=== PATIENT | male | born 1985 | race Two or more races ===

== ENCOUNTER → 2022-12-02 08:10 | Outpatient (BNVA) | payer SELFPAY | PROVIDERS: Visit Provider Physician Assistant | DX: Z02.79 Encounter for issue of other medical certificate (principal) ==

== ENCOUNTER 2023-05-17 11:21 | Outpatient (REF) | payer OTHER, SELFPAY ==
[2023-05-17 12:36] LABS: Anion Gap 11 (12-20); Blood Urea Nitrogen 17 mg/dL (9-16); Calcium 9.4 mg/dL (8.4-10.2); Carbon Dioxide 25 mmol/L (22-29); Chloride 107 mmol/L (96-108); Cholesterol 245 mg/dL (<200); Estimated Glomerular Filt Rate > 60; Glucose Random 115 mg/dL (60-115); HDL Cholesterol 45 mg/dL (>40); LDL Cholesterol Calculated 157 mg/dL (<100); Potassium 4.1 mmol/L (3.3-5.1); Sodium 139 mmol/L (135-145); Triglycerides 215 mg/dL (<150)
[2023-05-17 12:51] LABS: Vitamin D 25-OH Total 21.6 ng/mL (>30)
[2023-05-17 12:57] LABS: Vitamin B12 1295 pg/mL (200-900)
== END 2023-05-17 11:22 | disposition home or self-care (01) ==
LOC: HO.LAB 11:21
PROVIDERS: PCP Nurse Practitioner Primary Care; Visit Provider Nurse Practitioner Primary Care
DX: E78.1 Pure hyperglyceridemia (principal); E21.3 Hyperparathyroidism, unspecified; R20.2 Paresthesia of skin; R20.0 Anesthesia of skin
CPT/HCPCS: 36415; 80048; 80061; 82306; 82607

== ENCOUNTER 2024-05-15 17:06 | Outpatient (REF) | payer OTHER, SELFPAY ==
[2024-05-16 02:45] LABS: CT PCR NOT DETECTED (Not Detect.); NG PCR NOT DETECTED (Not Detect.)
== END 2024-05-15 17:07 | disposition home or self-care (01) ==
LOC: HO.HHCLNP 17:06
PROVIDERS: Visit Provider Nurse Practitioner Family
DX: R31.9 Hematuria, unspecified (principal)
CPT/HCPCS: 87086; 87491; 87591

== ENCOUNTER 2024-07-07 16:12 | Outpatient (REF) | payer OTHER, SELFPAY ==
--- OUTSIDE RECORDS SUMMARY | 2024-07-07 16:14 | XMS_ITS ---
Author Name [facility] Organization Unknown Care Team Organization Name Specialty Phone Email Start Date End [facility]
--- OUTSIDE RECORDS SUMMARY | 2024-07-07 16:14 | XMS_ITS | Data Portability ---
Author Organization [place] - [facility] [address] Address [address] [place] [address] Assessment No assessment recorded. Plan of Treatment Reminders Order Date Submit Date Provider Last Modified By Organization Details Last Modified Time Details Appointments None record ed. Lab None record ed. Referral None record ed. Procedures None record ed. Surgeries None record ed. Imaging None record ed. Medication Orders None record ed. Patient TargetsNo targets recorded. Patient InstructionsNo instructions recorded. Reason for Referral None Reported. Procedures Surgical History Date Name Laterality Status Provider Name and Address Organization Details Recorded Time 3 OC-BAT Screening Template DOT completed FITZ HANSEN [place] - [facility] 03/26/2022 17:29:46 3 OC-UDS Send Out Template DOT completed FITZ HANSEN PA - [facility] 03/26/2022 17:31:18 2 OC-BAT Screening Template NON DOT completed TL OKEEFE PA - [facility] 02/04/2022 15:24:32 2 OC-UDS Send Out Template NON DOT completed TL DESMITH PA - [facility] 02/04/2022 15:36:39 Imaging Results None recorded. Procedure Notes None recorded. Medical Equipment None Reported. Vitals None Recorded Social History None recorded. Functional Status None recorded. Mental Status None recorded. Family History Nothing Reported. Medical History No medical history recorded. Past Encounters Encounter ID Performer Location Encounter Start Date Encounter Closed Date Diagnosis/Indication Diagnosis SNOMED-CT Code Diagnosis ICD10 Code Diagnosis Note [id number] [facility] [facility] [address] [place] [address] 05/24/2017 13:05:13 05/24/2017 14:02:53 [id number] [address] [place] [phone] 7 12/03/2020 08:16:56 12/03/2020 09:05:19 [id number] [address] [facility] [address] [place] [address] 11/19/2015 08:38:29 11/19/2015 11:09:51 [id number] [address] [place] [address] 11/25/2020 11:56:49 11/25/2020 13:08:37 [id number] [facility] [address] [address] [place] [address] 02/08/2020 16:46:58 02/08/2020 18:03:17 [id number] [facility] [address] [address] [place] [address] 7 12/04/2018 09:09:43 12/04/2018 09:56:36 [id number] Kaylynn Marcus [place] [address] [facility] [address] [place] [phone] 02/04/2022 14:45:42 02/04/2022 15:36:54 History and physical examination, pre-employment [id number] Z02.1 [id number] Kaylynn Marcus DO [address] [address] [place] [address] 03/26/2022 15:07:53 03/26/2022 17:36:00 History and physical examination, pre-employment [id number] Z02.1 Health Concerns Section Related Observation LastModified by Organization Detai ls LastModified Time None Recorded Concern Status LastModified by Organization Details LastModified Time None Recorded Advance Directives Directive None Recorded Payers Insurance Date Sequence Insurance Name Policy Number Policy West Covered Member ID West Member ID Guarantor Name 03/26/2022 -[employer] - [employer] [facility] JOSEPHINE MONIQUE [facility] 02/04/2022 OC[employer] - [employer] [facility] JOSEPHINE MONIQUE [facility]
[2024-07-07 16:31] LABS: Appearance Urine Clear; Color Urine Yellow; Glucose Urine UA >=1000 mg/dL (Negative); Leukocyte Esterase Urine Negative (Negative); Nitrite Urine Negative (Negative); UMIC TRIGGER UACC YES; Urine Blood Negative (Negative); Urine Ketones Negative (Negative); Urine Protein Negative (Neg-Trace)
[2024-07-07 16:36] LABS: Bacteria Urine None Seen (None Seen); Hyaline Casts Urine 0-2 /LPF (0-2); RBC Urine 0-2 /HPF (0-2); Squamous Epithelial Cell Urine 0-2 /HPF (0-2); WBC Urine 0-5 /HPF (0-5)
== END 2024-07-07 16:13 | disposition home or self-care (01) ==
LOC: HO.HHCLNP 16:12
PROVIDERS: Visit Provider Nurse Practitioner Primary Care
DX: R31.9 Hematuria, unspecified (principal)
CPT/HCPCS: 81001

== ENCOUNTER 2024-07-10 09:04 | Outpatient (REF) | payer OTHER, SELFPAY ==
--- OUTSIDE RECORDS SUMMARY | 2024-07-10 09:12 | XMS_ITS | Encounter Summary ---
Author Organization [employer] Address [address] [facility] 7t [place] [address] Care Team Providers Care Cart Driver Name Role Phone Gila Chun Primary Care Provider [phone] Encounter Details Date Type Department Care Team (Late st Contact Info) Description 07/07/2024 Orders Only [facility] MED[facility] [address] [place] [address] Gila Chun ANP [address] [place] [address] Glucosuria (Primary Dx); Screening for diabetes mellitus; Hypertriglyceridemia Social History Tobacco Use Types Packs/Day Years Used Date Smoking Tobacco: Never Passive Smoke Exposure: Never Smokeless Tobacco: Never Alcohol Use Standard Drinks/Week Comments Never 0 (1 standard drink = 0.6 oz pur e alcohol) Depression Answer Date Recorded Patient Health Questionnaire-9 Score 2 05/10/2023 Patient Health Questionnaire-9 Score 2 05/10/2023 Last PHQ-9: Questionnaire Data Not on file 0 05/10/2023 Housing Stability Answer Date Recorded What is your housing situation today? I have verna aguero 07/07/[address] you li ve. Do you have problems with any of the following? None of the above 07/07/2024 Food Insecurity Answer Date Recorded Within the past 12 months, y ou worried that your food would run out before you got money to buy more: Never True 07/07/2024 Within the past 12 months,th e food you bought just didn't last and you didn't have enough money to get more: Never True 10/2024 Transportation Answer Date Recorded In the past 12 months, has l ack of transportation kept you from medical appts, meetings, work or from getting things needed for daily living? No 07/07/2024 Utilities Answer Date Recorded In the past 12 months, has t he electric, gas, oil or water company threatened to shut off services in your home? No 07/07/2024 Depression Answer Date Recorded Patient Health Questionnaire-2 Score 0 07/07/2024 Internet Access Answer Date Recorded Internet Access Q1 Yes 11/05/2023 Internet Access Q2 Not on file 11/05/2023 Sex and Gender Information Value Date Recorded Sex Assigned at Male 12/29/2021 10:16 AM EDT Legal Sex Male 10:16 AM EDT Gender Identity Male 12/29/2021 10:16 AM EDT Sexual Orientation Don't know 12/29/2021 10 :16 AM EDT documented as of this encounter Progress Notes * KUNAL Rivero - 07/07/2024 4:48 PM EDT Lab Results Component Value Date HGBA1C 5.5 11/19/2020 Spoke w/ pt - UA did not show blood but did show glucosuria. Pt does report lost weight in last mo and is urinating more. Will check labs as below and call him next week. Diagnoses and all orders for this visit: Glucosuria - Basic Metabolic Panel; Future Screening for diabetes mellitus - Hemoglobin A1c; Future Hypertriglyceridemia - Lipid Panel, Standard; Future documented in this encounter Plan of Treatment Scheduled Orders Name Type Priority Associated Diagnoses Orde r Schedule Hemoglobin A1c Lab Routine Screening for diabetes mellitus Expected: 07/07/2024 (Approximate), Expires: 07/07/2025 Basic Metabolic Panel Lab Routine Glucosuria Expected: 07/07/2024 (Approximate), Expires: 07/07/2025 Lipid Panel, Standard Lab Routine Hypertriglyceridemia Expected: 07/07/2024 (Approximate), Expires: 07/07/2025 documented as of this encounter Visit Diagnoses Diagnosis Glucosuria- Primary Glycosuria Screening for diabetes mellitus Hypertriglyceridemia Pure hyperglyceridemia documented in this encounter Additional Health Concerns Assessment Noted Time PHQ-9 Depression Total Score: 2 05/10/19 24 1:07 PM EDT documented as of this encounter Care Teams Cart Driver Relationship Specialty Start Date End Date Gila Chun ANP [address] [place] [address] PCP - General Family Medicine 11/19/20 documented as of this encounter
--- OUTSIDE RECORDS SUMMARY | 2024-07-10 09:12 | XMS_ITS | Encounter Summary ---
Author Organization [employer] Address [address] [place] [address] [address]t [place] [address] Care Team Providers Care Configuration Management Consultant Name Role Phone Gila Chun Primary Care Provider [phone] Encounter Details Date Type Department Care Team (Latest Contact Info) Description 05/03/2019 Abstract [facility] CONVERSIONS Dental, Provider, DDS Social History Tobacco Use Types Packs/Day Years Used Date Smoking Tobacco: Never Assessed Sex and Gender Information Value Date Recorded Sex Assigned at Male 12/29/2021 10:16 AM EDT Legal Sex Male 10:16 AM EDT Gender Identity Male 12/29/2021 10:16 AM EDT Sexual Orientation Don't know 12/29/2021 10 :16 AM EDT documented as of this encounter Plan of Treatment Not on file documented as of this encounter Visit Diagnoses Not on filedocumented in this encounter Care Teams Configuration Management Consultant Relationship Specialty Start Date End Date Gila Chun ANP [address] [place] [phone] PCP - General Family Medicine 11/19/20 documented as of this encounter
--- OUTSIDE RECORDS SUMMARY | 2024-07-10 09:12 | XMS_ITS | Encounter Summary ---
Author Organization [employer] Address [address] [facility] 7t [place] [address] Care Team Providers Care Gas Or Water Meter Installer Name Role Phone Gila Chun Primary Care Provider [phone] Encounter Details Date Type Department Care Team (Latest Contact Info) Description 07/07/2024 Travel Social History Tobacco Use Types Packs/Day Years [...] Diagnoses Not on filedocumented in this encounter Additional Health Concerns Assessment Noted Time PHQ-9 Depression Total Score: 2 05/10/19 24 1:07 PM EDT documented as of this encounter Care Teams Gas Or Water Meter Installer Relationship Specialty Start Date End Date Gila Chun ANP [address] [place] [address] PCP - General Family Medicine 11/19/20 documented as of this encounter
--- OUTSIDE RECORDS SUMMARY | 2024-07-10 09:12 | XMS_ITS | Encounter Summary ---
Author Organization [employer] Address [address] [facility] 7[address] [place] [address] Care Team Providers Care Granite Chip Terrazzo Finisher Name Role Phone Gila Chun Primary Care Provider [phone] Encounter Details Date Type Department Care Team ([facility] st Contact Info) Description 07/07/2024 Telephone [facility] MEDICINE [address] [place] [address] Gila Chun ANP [address] [place] [address] Social History Tobacco Use Types Packs/Day Years [...] AM EDT documented as of this encounter Miscellaneous Notes * Telephone Encounter - Leslie Stewart - 07/07/2024 1:53 PM EDT Pt was called due to pcp other on insurance pt states he called insurance yesterday and his insurance said that their is a glitch on their side , I advised pt I'm going to re check it on Wednesday and if pcp other is still the same he would need to contact insurance again. documented in this encounter Plan of Treatment Not on file documented as of this encounter Visit Diagnoses Not on filedocumented in this encounter Additional Health Concerns Assessment Noted Time PHQ-9 Depression Total Score: 2 05/10/19 24 1:07 PM EDT documented as of this encounter Care Teams Granite Chip Terrazzo Finisher Relationship Specialty Start Date End Date Gila Chun ANP [address] [place] [address] PCP - General Family Medicine 11/19/20 documented as of this encounter
--- OUTSIDE RECORDS SUMMARY | 2024-07-10 09:12 | XMS_ITS | Encounter Summary ---
Author Organization [employer] Address [address] [place] [address] 7t [place] [address] Care Team Providers Care Experience Planning Strategist Name Role Phone Gila Chun Primary Care Provider Encounter Details Date Type Department Care Team (Late st Contact Info) Description 07/07/2024 1:00 PM EDT Office Visit [facility] [address] [place] [address] Gila Chun ANP [address] [place] [address] Hematuria, unspecified type (Primary Dx); Elevated blood pressure reading without diagnosis of hypertension Social History Tobacco Use Types Packs/Day Years [...] AM EDT documented as of this encounter Last Filed Vital Signs Vital Sign Reading Time Taken Comments Blood Pressure 138/78 07/07/2024 1:15 PM EDT Pulse 81 07/07/2024 1:00 PM EDT Temperature - - Respiratory Rate 16 07/07/2024 1:00 PM EDT Oxygen Saturation - - Inhaled Oxygen Concentration - - Weight 87.1 kg (192 lb) 07/07/2024 1:00 PM EDT Height 167.6 cm (5' 6 ) 07/07/2024 1:00 PM EDT Body Mass Index 30.99 07/07/2024 1:00 PM EDT documented in this encounter Progress Notes * KUNAL Rivero - 07/07/2024 1:00 PM EDT Subjective Patient ID: Pj Zhao is a 38 y.o. male who presents for follow-up. HPI Sick visit at [facility] [place] 05/15/2024 for hematuria. Patient denies dysuria urinary frequency or trauma at the time. Non-smoker. No new sexual partners. UA at that time with trace blood otherwise WNL. Urine culture mixed bacterial lea suggestive of urogenital contamination and NG/CT negative. Denies any sx today. Sexually active w/ 1 LT partner. Non-smoker Review of Systems Constitutional: Negative for chills and fever. HENT: Negative for sore throat. Respiratory: Negative for cough and shortness of breath. Cardiovascular: Negative for chest pain. Gastrointestinal: Negative for constipation and diarrhea. Endocrine: Negative for polydipsia, polyphagia and polyuria. Genitourinary: Negative for dysuria. Objective BP 138/78 (BP Location: Left arm, Patient Position: Sitting, BP Cuff Size: Large adult) Pulse 81 Resp 16 Ht 5' 6 (1.676 m) Wt 192 lb (87.1 kg) BMI 30.99 kg/m?? Physical Exam Vitals reviewed. Constitutional: General: He is not in acute distress. Appearance: Normal appearance. He is not ill-appearing. HENT: Head: Normocephalic and atraumatic. Eyes: General: No scleral icterus. Extraocular Movements: Extraocular movements intact. Pupils: Pupils are equal, round, and reactive to light. Cardiovascular: Rate and Rhythm: Normal rate. Pulmonary: Effort: Pulmonary effort is normal. No accessory muscle usage or respiratory distress. Neurological: Mental Status: He is alert and oriented to person, place, and time. Psychiatric: Mood and Affect: Mood normal. Behavior: Behavior normal. Assessment/Plan Diagnoses and all orders for this visit: Hematuria, unspecified type Asymptomatic. Has not recurred. If UA + for blo will check renal US - Urinalysis, Complete, with Reflex to Culture Elevated blood pressure reading without diagnosis of hypertension At/near goal today, </= 130/80. Continue to encourage low salt diet, regular exercise, home BP monitoring. Call clinic if BP is frequently >140/90 Go to ED/call 911 if > 170/100 and having sx such as HAUSER, visual changes, chest pain, SOB Last renal function: Lab Results Component Value Date GLUCOSE 115 05/17/2023 NA 139 05/17/2023 K 4.1 05/17/2023 CO2 25 05/17/2023 CL 107 05/17/2023 BUN 17 (H) 05/17/2023 CREATININE 0.83 05/17/2023 EGFR >60 05/17/2023 No results found for: MICROALBCREA No results found for: MICROALBCREU - Blood Pressure kit; 1 each 2 times daily. No future appointments. documented in this encounter Plan of Treatment Not on file documented as of this encounter Procedures Procedure Name Priority Date/Time Associated Diagnosis Comments URINALYSIS, COMPLETE, WITH REFLEX TO CULTURE Routine 07/07/2024 1:22 PM EDT Hematuria, unspecified type documented in this encounter Results * (ABNORMAL) Urinalysis, Complete, with Reflex to Culture (07/07/2024 1:22 PM EDT) Color Urine Yellow [facility] Appearance Urine Clear [facility] PH 8.0 5.0 - 9.0 [facility] Glucose Urine UA >=1000(A) Negative mg/dL [facility] Urine Blood Negative Negative [facility] Specific [place] - Urine 1.020 1.005 - 1.025 [facility] Urine Protein Negative Neg-Trace mg/dL [facility] Urine Ketones Negative Negative mg/dL [facility] Nitrite Urine Negative Negative [facility] Leukocyte Esterase Urine Negative Negative [facility] RBC Urine 0-2 0 - 2 /HPF [facility] Urine WBC 0-5 0 - 5 /HPF [facility] Urine Squamous Epithelial Cell 0-2 0 - 2 /HPF [facility] Urine Bacteria None Seen None Seen [facility] Hyaline Casts, Urine 0-2 0 - 2 /LPF [facility] Urine 07/07/2024 1:22 PM EDT 07/07/2024 4:13 PM EDT Narrative [facility] - 07/07/2024 4:40 PM EDT Urine, Clean Catch Gila SYED LAB URINE ORDERABLES Final Resul t [facility] [address] [place] [address] [phone] documented in this encounter Visit Diagnoses Diagnosis Hematuria, unspecified type- Primary Elevated blood pressure reading without diagnosis of hypertension documented in this encounter Additional Health Concerns Assessment Noted Time PHQ-9 Depression Total Score: 2 05/10/19 24 1:07 PM EDT documented as of this encounter Care Teams Experience Planning Strategist Relationship Specialty Start Date End Date Gila Chun ANP [address] [place] [phone] PCP - General Family Medicine 11/19/20 documented as of this encounter
--- OUTSIDE RECORDS SUMMARY | 2024-07-10 09:13 | XMS_ITS | Encounter Summary ---
Author Organization [employer] Address [address] [place] [address] [address]t [place] [address] Care Team Providers Care Analysis Lead Name Role Phone Gila Chun Primary Care Provider [phone] Reason for Visit * Reason Onset Date Comments Chart Prep 07/06/2024 Encounter Details Date Type Department Care Team ([facility] st Contact Info) Description 07/06/2024 Telephone [facility] [address] [place] [address] Gila Chun ANP [address] [place] [address] Chart Prep Social History Tobacco Use Types Packs/Day Years [...] encounter Miscellaneous Notes * Telephone Encounter - Yun [place] - 07/06/2024 1:30 PM EDT Chart Prep Labs: not applicable Images: not applicable Vaccines due: Covid Due and Flu Due Referrals: Not Applicable Screenings: Not Applicable Overdue care gaps: Sbirt, SDOH, PQ9, GAD7, Disability , and Oral Health documented in this encounter Plan of Treatment Not on file documented as of this encounter Visit Diagnoses Not on filedocumented in this encounter Additional Health Concerns Assessment Noted Time PHQ-9 Depression Total Score: 2 05/10/19 24 1:07 PM EDT documented as of this encounter Care Teams Analysis Lead Relationship Specialty Start Date End Date Gila Chun ANP [address] [place] [phone] PCP - General Family Medicine 11/19/20 documented as of this encounter
--- OUTSIDE RECORDS SUMMARY | 2024-07-10 09:13 | XMS_ITS | Clinical Summary ---
Author Organization [email or web address] Address [address] [place] [address] 7[address] [place] [address] Care Team Providers Care Equipment Sterilizer Name Role Phone Gila Chun Primary Care Provider [phone] Allergies No known active allergies Medications cholecalciferol (Vitamin D3) 25 MCG (1000 UT) tabletIndications :Hyperparathyroid ism (CMS/HCC) TAKE 1 TABLET (25 MCG) BY MOUTH IN THE MORNING 90 tablet 3 5 Active Blood Pressure kitIndications:El evated blood pressure reading without diagnosis of hypertension 1 each 2 times daily. 1 kit 5 07/08/19 26 Active Active Problems Problem Noted Date Diagnosed Date Hematuria 05/15/2024 Assessment & Plan (05/15/2024 1:09 PM EDT): Trace blood on today's sample, asymptomatic Will rule out infection Has upcoming visit with pcp 07/07/24 consider repeat UA at that time. Should pt develop gross hematuria Return to clinic Hyperparathyroidism 01/28/2021 Encounters Date Type Department Care Team Description 07/07/2024 1:00 PM EDT Office Visit [facility] [address] [place] [phone] Gila Chun ANP Hematuria, unspecified type (Primary Dx); Elevated blood pressure reading without diagnosis of hypertension 07/07/2024 Orders Only [facility] [address] [place] [address] [phone] Gila Chun ANP Glucosuria (Primary Dx); Screening for diabetes mellitus; Hypertriglyceridemia 07/07/2024 Telephone [facility] [address] [place] [address] [phone] Gila Chun ANP 07/07/2024 Travel 07/06/2024 Telephone [facility] [address] [place] [address] Gila Chun ANP Chart Prep 07/06/2024 Telephone [facility] [address] [place] [address] Gila Chun ANP Insurance 05/24/2024 Telephone [facility] [address] [place] [phone] Ayala Malagon [place] Results 05/15/2024 1:00 PM EDT Office Visit [facility] [address] [place] [phone] Brook Girard NP Hematuria, unspecified type (Primary Dx) 05/15/2024 Travel 05/07/2024 Refill [facility] [address] [place] [address] Gila Chun ANP Hyperparathyroidism (CMS/HCC) from Last 3 Months Immunizations Name Administration Dates Next Due DTaP 09/15/1991, 0,04/17/1987,1986,1986 Hep B, adult 05/08/2000,12/17/1999,11/04/1999 Hib ([facility]) 11/15/1989 IPV 01/15/1997, 2,11/15/1989,1987,1986 MMR 11/16/1995,11/16/1987 Pfizer Covid-19 Vaccine 12+ 05/08/2000, 0,11/04/1999 TD (adult), 2 Lf tetanus tox oid, preservative free, adsorbed 11/04/1999 Td (adult), unspecified 11/04/1999 Tdap 11/19/2020,06/06/2014 Family History Medical History Relation Name Comments Hypertension Maternal Grandfather Relation Name Status Comments Maternal Grandfather Social History Tobacco Use Types Packs/Day Years [...] Don't know 12/29/2021 10 :16 AM EDT Last Filed Vital Signs Vital Sign Reading Time Taken Comments Blood Pressure 138/78 07/07/2024 1:15 PM EDT Pulse 81 07/07/2024 1:00 PM EDT Temperature 36.7 ??C (98 ??F) 05/15/2024 12:54 PM EDT Respiratory Rate 16 07/07/2024 1:00 PM EDT Oxygen Saturation 98% 05/15/2024 12:54 PM EDT Inhaled Oxygen Concentration - - Weight 87.1 kg (192 lb) 07/07/2024 1:00 PM EDT Height 167.6 cm (5' 6 ) 07/07/2024 1:00 PM EDT Body Mass Index 30.99 07/07/2024 1:00 PM EDT Plan of Treatment Health Maintenance Due Date Last Done Comments Family Planning (PISQ) 2001 COVID-19 Vaccine ( season) 2023 05/08/2000, 12/17/1999, 11/04/1999 Influenza Vaccine (#1) 2023 Alcohol/Substance Use Screening 07/07/2025 07/07/2024 Depression Screening 07/07/2025 07/07/2024, 05/10/19 24 SDOH Screening 07/07/2025 07/07/2024 Tobacco Screening 07/07/2025 07/07/2024 Lipid Panel 05/16/2028 05/17/2023, 11/19/2020 DTaP/Tdap/Td Vaccines (8 - Td or Tdap) 11/19/2030 11/19/2020, 06/06/2014, 11/04/1999, Additional history exists Zoster Vaccines (1 of 2) 2036 RSV Patients and Patients Aged 60 years or older (1 - 1-dose 75+ series) 2061 HIB Vaccines Completed 11/15/1989 IPV Vaccines Completed 01/15/1997, 12/30, 11/15/1989, Additional history exists Hepatitis B Vaccines Completed 05/08/2000, 12/17/1999, 11/04/1999 HIV Screening Completed 11/19/2020 Hepatitis C Screening Completed 11/19/2020 HPV Vaccines Aged Out No longer eligi ble based on patient's age to complete this topic Hepatitis A Vaccines Aged Out No long er eligible based on patient's age to complete this topic Meningococcal Vaccine Aged Out No ailyn hayden eligible based on patient's age to complete this topic Pneumococcal Vaccine: Pediatrics (0 to 5 Years) and At-Risk Patients (6 to 49) Years) Aged Out No longer eligible based on patient's age to complete this topic RSV under 20 months Aged Out No longe r eligible based on patient's age to complete this topic Rotavirus Vaccines Aged Out No longer eligible based on patient's age to complete this topic Procedures Procedure Name Priority Date/Time Associated Diagnosis Comments URINALYSIS, COMPLETE, WITH REFLEX TO CULTURE Routine 07/07/2024 1:22 PM EDT Hematuria, unspecified type CULTURE, URINE, ROUTINE Routine 05/15/2024 2:14 PM EDT Hematuria, unspecified type CHLAMYDIA/N. GONORRHOEAE RNA, TMA, UROGENITAL Routine 05/15/2024 2:14 PM EDT Hematuria, unspecified type POCT URINALYSIS DIPSTICK Routine 05/15/2024 1:04 PM EDT Hematuria, unspecified type LIPID PANEL, STANDARD Routine 05/17/2023 11:31 AM EDT Hypertriglyceridemia ZZZ HISTORICAL HEPATITIS C AB W/REFL TO HCV RNA, QN, PCR Routine 11/19/2020 9:41 AM EDT HIV 1/2 ANTIGEN/ANTIBODY, FOURTH GENERATION W/RFL Routine 11/19/2020 9:41 AM EDT from Last 3 Months or Most Recently Relevant to Health Maintenance Results * (ABNORMAL) Urinalysis, Complete, with Reflex to Culture (07/07/2024 1:22 PM EDT) Color Urine Yellow [facility] Appearance Urine Clear [facility] PH 8.0 5.0 - 9.0 [facility] Glucose Urine UA >=1000(A) Negative mg/dL [facility] Urine Blood Negative Negative [facility] Specific [place] - Urine 1.020 1.005 - 1.025 [facility] Urine Protein Negative Neg-Trace mg/dL [facility] Urine Ketones Negative Negative mg/dL [facility] Nitrite Urine Negative Negative [facility] Leukocyte Esterase Urine Negative Negative [facility] RBC Urine 0-2 0 - 2 /HPF [facility] Urine WBC 0-5 0 - 5 /HPF [facility] Urine Squamous Epithelial Cell 0-2 0 - 2 /HPF [facility] Urine Bacteria None Seen None Seen [facility] Hyaline Casts, Urine 0-2 0 - 2 /LPF [facility] Urine 07/07/2024 1:22 PM EDT 07/07/2024 4:13 PM EDT Narrative [facility] - 07/07/2024 4:40 PM EDT Urine, Clean Catch Gila Chun [facility] URINE ORDERABLES Final Resul t [facility] [address] [place] [phone] * Chlamydia/N. Gonorrhoeae RNA, TMA, Urogenitial (05/15/2024 2:14 PM EDT) CT PCR NOT DETECTED Not Detect. [facility] Comment:A not detected test result does not exclude the possibilityof infection because test results can be affected byimproper specimen collection, concurrent antibiotic therapy,or the number of organisms in the specimen which may bebelow the sensitivity of the test. As with many diagnostictests, results from the Xpert CT/NG assay should beinterpreted in conjunction with other laboratory andclinical data available to the clinician.Xpert CT/NG performance has not been evaluated in patientsless than 14 years of age. The assay should not be used forthe evaluationof suspected sexual abuse or for other medico-legalindications. Additional testing is recommended in anycircumstance when false positive or false negative resultscould lead to adverse medical, social or psychologicalconsequences. NG PCR NOT DETECTED Not Detect. [facility] Comment:A not detected test result does not exclude the possibilityof infection because test results can be affected byimproper specimen collection, concurrent antibiotic therapy,or the number of organisms in the specimen which may bebelow the sensitivity of the test. As with many diagnostictests, results from the Xpert CT/NG assay should beinterpreted in conjunction with other laboratory andclinical data available to the clinician.Xpert CT/NG performance has not been evaluated in patientsless than 14 years of age. The assay should not be used forthe evaluationof suspected sexual abuse or for other medico-legalindications. Additional testing is recommended in anycircumstance when false positive or false negative resultscould lead to adverse medical, social or psychologicalconsequences. Urine (Urine, Random) 05/15/2024 2:14 PM EDT 05/15/2024 5:07 PM EDT Narrative [facility] - 05/16/2024 2:45 AM EDT Urine Result [facility] Brook Girard ELECTRIC MELT OPERATOR LAB MICROBIOLOGY - GENERAL ORDER NOEMÍ Final Result Performing Organization Address [facility] Co de Phone Number [facility] [address] [place] [phone] * Culture, Urine, Routine (05/15/2024 2:14 PM EDT) Urine Urine specimen obtained by clean catch procedure / Unknown 05/15/2024 2:14 PM EDT 05/15/2024 5:07 PM EDT Comment:UACC Narrative [facility] - 05/17/2024 11:38 AM EDT Urine Culture Report Result Urine Culture 10,000 to 50,000 cfu/ml Urine Culture Mixed bacterial lea characteristic of Urine Culture urogenital contamination. Specimen Source: Urine clean catch Result [facility] Brook Girard ELECTRIC MELT OPERATOR LAB MICROBIOLOGY - GENERAL ORDER NOEMÍ Final Result Performing Organization Address [facility] Phone Number [facility] [address] [place] [phone] * (ABNORMAL) POCT Urinalysis (05/15/2024 1:04 PM EDT) Color, UA Light Yellow Clarity, UA Clear Glucose, UA Negative Bilirubin, UA Negative Ketones, UA Negative Spec Grav, UA 1.005 Blood, UA Positive(A) Negative, None Detected Comment:Trace-Intact pH, UA 6.0 Protein, UA Negative Urobilinogen, UA 0.2 Leukocytes, UA Negative Negative, Rare, Trace Nitrite, UA Negative Negative, None Detected Appearance, UA Yellow QC Media Lot # [id number] Lot# Expiration Date [id number] Urine 05/15/2024 1:04 PM EDT Result [facility] Brook Girard NP POINT OF CARE TEST ENTER/EDIT OR DERABLES Final Result * (ABNORMAL) Lipid Panel, Standard (05/17/2023 11:31 AM EDT) Triglycerides 215(H) <150 mg/dL [facility] Comment:Desirable Triglyceri de: less than 150 mg/dLBorderline High Triglyceride 150-199 mg/dLHigh Triglyceride: 200-499 mg/dLVery High Triglyceride: greater than or equal to 5OO mg/dL Cholesterol 245(H) <200 mg/dL [facility] Comment:Desirable Cholestero l: less than 200 mg/dLBorderline High Cholesterol: 200-239 mg/dLHigh Cholesterol: greater than 239 mg/dL LDL Cholesterol Calculated 157(H) <100 mg/dL [facility] Comment:Desirable LDL: less than 100 mg/dLNear Optimal/Above Optimal LDL: 110- 129 mg/dLBorderline High LDL: 130-159 mg/dLHigh LDL: 160-189 mg/dLVery High LDL: greater than or equal to 190 mg/dL HDL Cholesterol 45 >40 mg/dL [facility] Comment:Desirable HDL: great er than 40 mg/dL Note: This HDL assay may give artificially low results in patients with liver disease. Blood Venous blood specimen / Unknown 05/17/2023 11:31 AM EDT 05/17/2023 11:31 AM EDT Gila Chun [facility] BLOOD ORDERABLES Final Resul t [facility] [address] [place] [phone] * HEPATITIS C AB W/REFL TO HCV RNA, QN, PCR (11/19/2020 9:41 AM EDT) HEPATITIS C ANTIBODY NON-REACT IRVING NON-REACT IRVING [facility] INDEX 0.01 <1.00 [facility] Comment: ?? HCV antibody was non-reactive. There is no laboratory ?? evidence of HCV infection. ?? In most cases, no further action is required. However, if recent HCV exposure is suspected, a test for HCV RNA (test code 73315) is suggested. ?? For additional information please refer to http://[employer]/faq/WVW07s2 (This link is being provided for informational/ educational purposes only.) ?? 11/19/2020 9:41 AM EDT us Gila Chun ANP HISTORICAL/NON ORDERABLE LABS Fi nal Result Performing Organization Address [facility] Phone Number [facility] [address] * HIV 1/2 ANTIGEN/ANTIBODY,FOURTH GENERATION W/RFL (11/19/2020 9:41 AM EDT) [facility] HIV-1/2 ANTIGEN AND ANTIBODIES, 4TH GENERATION W/ REFLEX NON-REACT IRVING NON-REACT IRVING [facility] Comment: HIV-1 antigen and HIV-1/HIV-2 antibodies were not detected. There is no laboratory evidence of HIV infection. ?? PLEASE NOTE: This information has been disclosed to you from records whose confidentiality may be protected by state law. ??If your state requires such protection, then the state law prohibits you from making any further disclosure of the information without the specific written consent of the person to whom it pertains, or as otherwise permitted by law. A general authorization for the release of medical or other information is NOT sufficient for this purpose. ? For additional information please refer to http://[employer]/faq/PMQ056 (This link is being provided for informational/ educational purposes only.) ? The performance of this assay has not been clinically validated in patients less than 2 years old. ?? 11/19/2020 9:41 AM EDT us Gila SYED LAB BLOOD ORDERABLES Final Resul t Performing Organization Address [facility] Number [facility] [address] from Last 3 Months or Most Recently Relevant to Health Maintenance Insurance [facility] , [address] [place] [address] Care Teams Equipment Sterilizer Relationship Specialty Start Date End Date Gila Chun ANP [address] [place] [address] [phone] PCP - General Family Medicine 11/19/20
--- OUTSIDE RECORDS SUMMARY | 2024-07-10 09:13 | XMS_ITS | Data Portability ---
Author Organization [place] - [facility] [address] Address [address] [place] [address] Assessment No assessment recorded. Plan of Treatment [...] SNOMED-CT Code Diagnosis ICD10 Code Diagnosis Note [id number] [facility] [address] [place] [phone] 05/24/2017 13:05:13 05/24/2017 14:02:53 [id number] [address] [place] [address] [phone] 12/03/2020 08:16:56 12/03/2020 09:05:19 [id number] [address] [facility] [address] [place] [phone] 11/19/2015 08:38:29 11/19/2015 11:09:51 [id number] [address] [place] [address] [phone] 11/25/2020 11:56:49 11/25/2020 13:08:37 [id number] [address] [facility] [address] [address] [place] [phone] 02/08/2020 16:46:58 02/08/2020 18:03:17 [id number] [facility] [address] [place] [address] [phone] 12/04/2018 09:09:43 12/04/2018 09:56:36 [id number] Kaylynn Marcus DO [address] [address] [place] [address] [phone] 02/04/2022 14:45:42 02/04/2022 15:36:54 History and physical examination, pre-employment [id number] Z02.1 [id number] Kaylynn Marcus DO [address] [address] [place] [phone] 03/26/2022 15:07:53 03/26/2022 17:36:00 History and physical examination, pre-employment [id number] Z02.1 Health Concerns Section Related Observation LastModified by Organization Detai ls LastModified Time None Recorded Concern Status LastModified by Organization Details LastModified Time None Recorded Advance Directives Directive None Recorded Payers Insurance Date Sequence Insurance Name Policy Number Policy West Covered Member ID West Member ID Guarantor Name 03/26/2022 -[employer] - [employer] ACCT [facility] JOSEPHINE MONIQUE [facility] 02/04/2022 [employer] AC[employer] [facility] JOSEPHINE MONIQUE [facility]
--- OUTSIDE RECORDS SUMMARY | 2024-07-10 09:13 | XMS_ITS | Encounter Summary ---
Author Organization [employer] Address [address] [place] [address] [address]t [place] [address] Care Team Providers Care Single End Sewer Name Role Phone Gila Chun Primary Care Provider [phone] Encounter Details Date Type Department Care Team (Latest Contact Info) Description 04/25/2018 Abstract [facility] CONVERSIONS Dental, Provider, DDS Social History Tobacco [...] on filedocumented in this encounter Care Teams Single End Sewer Relationship Specialty Start Date End Date Gila Chun ANP [address] [place] [phone] PCP - General Family Medicine 11/19/20 documented as of this encounter
--- OUTSIDE RECORDS SUMMARY | 2024-07-10 09:13 | XMS_ITS | Encounter Summary ---
Author Organization [employer] Address [address] [place] [address] [address] [place] [address] Care Team Providers Care Home Weatherizing Worker Name Role Phone Gila Chun Primary Care Provider [phone] Reason for Visit * Reason Onset Date Comments Insurance 07/06/2024 Encounter Details Date Type Department Care Team ([facility] st Contact Info) Description 07/06/2024 Telephone [facility] [address] [place] [address] Gila Chun ANP [address] [place] [address] Insurance Social History Tobacco Use Types Packs/Day Years [...] encounter Miscellaneous Notes * Telephone Encounter - Giovanna Otto - 07/06/2024 12:04 PM EDT Called Patient advised PCP other needs to be changed before schedule appointment with PCP. Patient understood will call insurance to change. documented in this encounter Plan of Treatment Not on file documented as of this encounter Visit Diagnoses Not on filedocumented in this encounter Additional Health Concerns Assessment Noted Time PHQ-9 Depression Total Score: 2 05/10/19 24 1:07 PM EDT documented as of this encounter Care Teams Home Weatherizing Worker Relationship Specialty Start Date End Date Gila Chun ANP [address] [place] [phone] PCP - General Family Medicine 11/19/20 documented as of this encounter
[2024-07-10 12:01] LABS: Estimated Average Glucose 151 mg/dL; Hemoglobin A1C 196.6706 umol/L; Hemoglobin A1c % 6.9 % (<6.0); Total Hemoglobin (HGBA1C) 3803.6391 umol/L
[2024-07-10 12:20] LABS: Anion Gap 11 (12-20); Blood Urea Nitrogen 14 mg/dL (9-16); Calcium 9.6 mg/dL (8.4-10.2); Carbon Dioxide 27 mmol/L (22-29); Chloride 102 mmol/L (96-108); Cholesterol 177 mg/dL (<200); Estimated Glomerular Filt Rate > 60; Glucose Random 201 mg/dL (60-115); HDL Cholesterol 47 mg/dL (>40); LDL Cholesterol Calculated 102 mg/dL (<100); Potassium 4.3 mmol/L (3.3-5.1); Sodium 136 mmol/L (135-145); Triglycerides 142 mg/dL (<150)
== END 2024-07-10 09:05 | disposition home or self-care (01) ==
LOC: HO.HHCL 09:04
PROVIDERS: Visit Provider Nurse Practitioner Primary Care
DX: Z13.1 Encounter for screening for diabetes mellitus (principal); E78.1 Pure hyperglyceridemia; R81 Glycosuria
CPT/HCPCS: 36415; 80048; 80061; 83036

== ENCOUNTER 2024-07-25 10:01 | Outpatient (REF) | payer OTHER, SELFPAY ==
--- OUTSIDE RECORDS SUMMARY | 2024-07-25 10:41 | XMS_ITS | Encounter Summary ---
Author Organization [employer] Address [address] [place] [address] 7t [place] [address] Care Team Providers Care Aligner Name Role Phone Gila Chun Primary Care Provider [phone] Encounter Details Date Type Department Care Team (Latest Contact Info) Description 05/03/2019 Abstract [facility] CONVERSIONS Dental, Provider, DDS Social [...] on filedocumented in this encounter Care Teams Aligner Relationship Specialty Start Date End Date Gila Chun ANP [address] [place] [phone] PCP - General Family Medicine 11/19/20 documented as of this encounter
[2024-07-25 11:49] LABS: Insulin 27 uU/mL (2-29)
[2024-07-26 02:59] LABS: C Peptide 4.84 ng/mL (0.80-3.85)
[2024-07-29 18:43] LABS: Glutamic acid decarboxylase Ab <5 IU/mL (<5)
[2024-08-02 16:23] LABS: Insulinoma associated 2 aatb <5.4 U/mL (<5.4)
[2024-08-02 19:45] LABS: Insulin Auto Antibody <0.4 U/mL (<0.4)
== END 2024-07-25 10:02 | disposition home or self-care (01) ==
LOC: HO.HHCL 10:01
PROVIDERS: Visit Provider Nurse Practitioner Primary Care
DX: E11.9 Type 2 diabetes mellitus without complications (principal)
CPT/HCPCS: 36415; 83525; 84681; 86337; 86341

== ENCOUNTER 2024-11-16 16:50 | Outpatient (REF) | payer OTHER, SELFPAY ==
--- OUTSIDE RECORDS SUMMARY | 2024-11-16 17:26 | XMS_ITS ---
Author Name [facility] Organization Unknown Care Team Organization Name Specialty Phone Email Start Date End Da te [facility] Karely [facility] Primary [facility] 01/06/2022 4 [facility]
[2024-11-16 17:39] LABS: Microalbum/Creatinine Ratio Ur 7.4 ug/mg cr (<30)
== END 2024-11-16 16:51 | disposition home or self-care (01) ==
LOC: HO.HHCLNP 16:50
PROVIDERS: Visit Provider Nurse Practitioner Primary Care
DX: E11.9 Type 2 diabetes mellitus without complications (principal)
CPT/HCPCS: 82043; 82570

== ENCOUNTER → 2024-12-01 08:55 | Outpatient (BNVA) | payer SELFPAY | PROVIDERS: PCP Nurse Practitioner Primary Care; Visit Provider Internal Medicine | DX: Z02.79 Encounter for issue of other medical certificate (principal) ==